=== PATIENT | female | born 1990 ===

== ENCOUNTER 2018-09-02 12:58 | Emergency (ER) | payer BC ==
[2018-09-02 13:10] VITALS: RESP 16; O2SAT 99
[2018-09-02] MEDS ORDERED: Sodium Chloride 0.9% 1,000 ML IV SCH (13:45)
--- NOTE | 2018-09-02 14:40 | ED PDOC ---
History of Present Illness History of Present Illness: 27 year old female presents to the ED with a fever and dry cough for 4 days. Also complains of associated headache, nausea , diarrhea. 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 Her Tmax was 102.7 yesterday. The temperature has varied greatly. Her temperature this morning was 98 before she took Tylenol and Motrin at 8:30am. Tolerating PO per baseline. She denies SOB, vomiting, sore throat, neck pain, chest pain, dizziness, abdominal pain, ear pain, urinary symptoms, or any other associated symptoms. PMD: [place] HPI: Influenza Time Seen by Provider: 09/02/18 13:58 Chief Complaint: Flu-like Symptoms Chief Complaint (Provider): Flu-like Symptoms History Per: Patient Exam Limitations: no limitations Onset/Duration Of Symptoms: Days (x 4) Symptoms include: headache, diarrhea Past Medical History Reviewed: Historical Data, Nursing Documentation, Vital Signs Vital Signs: Last Vital Signs Temp 98.1 F 09/02/18 13:06 Pulse 60 09/02/18 13:06 Resp 16 09/02/18 13:06 BP 106/63 09/02/18 13:06 Pulse Ox 99 09/02/18 13:06 - Medical History PMH: No Chronic Diseases - Surgical History Surgical History: No Surg Hx - Family History Family History: States: Unknown Family Hx - Home Medications Home Medications: Ambulatory Orders Medication Instructions Recorded Levofloxacin [Levaquin] 750 mg PO DAILY 4 Days #4 tablet 09/02/18 - Allergies Allergies/Adverse Reactions: Allergies Allergy/AdvReac Type Severity Reaction Status Date / Time No Known Allergies Allergy Verified 09/02/18 13:06 Review of Systems ROS Statement: Except As Marked, All Systems Reviewed And Found Negative Constitutional: Positive for: Fever Eyes: Negative for: Vision Change ENT: Negative for: Throat Pain Cardiovascular: Negative for: Chest Pain, Palpitations, Light Headedness Respiratory: Positive for: Cough. Negative for: Shortness of Breath Gastrointestinal: Positive for: Nausea, Diarrhea. Negative for: Vomiting, Abdominal Pain Genitourinary Female: Negative for: Dysuria, Frequency, Incontinence Musculoskeletal: Negative for: Neck Pain Skin: Negative for: Rash Neurological: Positive for: Headache. Negative for: Weakness, Numbness, Dizziness Physical Exam - Reviewed Nursing Documentation Reviewed: Yes Vital Signs Reviewed: Yes - Physical Exam Appears: Positive for: Non-toxic, No Acute Distress Head Exam: Positive for: ATRAUMATIC, NORMAL INSPECTION, NORMOCEPHALIC Skin: Positive for: Normal Color, Warm, Dry Eye Exam: Positive for: EOMI, Normal appearance, PERRL ENT: Positive for: Normal ENT Inspection Neck: Positive for: Normal, Painless ROM, Supple Cardiovascular/Chest: Positive for: Regular Rate, Rhythm Respiratory: Positive for: Normal Breath Sounds. Negative for: Crackles, Rales, Rhonchi, Wheezing, Respiratory Distress Pulses-Radial (L): 2+ Pulses-Radial (R): 2+ Gastrointestinal/Abdominal: Positive for: Normal Exam, Bowel Sounds (normoactive), Soft. Negative for: Tenderness Back: Positive for: Normal Inspection. Negative for: L CVA Tenderness, R CVA Tenderness Extremity: Positive for: Normal ROM, Capillary Refill (<2s). Negative for: Tenderness, Deformity, Swelling Lymphatic: Positive for: Normal Exam Neurologic/Psych: Positive for: Alert, Oriented, Gait (steady). Negative for: Motor/Sensory Deficits Medical Decision Making Medical Decision Makin:50 Initial Plan: --CMP --CBC --CXR --Tylenol 650 mg PO --Zofran ODT 4 mg IVP --NS IV --UA CBC:wnl CMP:wnl UA: small blood, otherwise wnl POC Preg: negative Patient feeling much better after fluids and Zofran. Tolerating PO without difficulty. Ate jello, juice, and a sandwich. no vomiting. CXR FINDINGS: LUNGS: Patchy somewhat nodular appearing infiltrate is suspected at the right lower lobe base on the frontal view alone. There is some reduction in the retrocardiac clear space in the lateral view which favors right lower lobe over right middle lobe infiltrate. No suspicious findings seen in lateral view at the level of the right middle lobe. Left lung appears clear throughout. PLEURA: No significant pleural effusion identified. No pneumothorax apparent. CARDIOVASCULAR: No aortic atherosclerotic calcification present. Normal cardiac size. No pulmonary vascular congestion. OSSEOUS STRUCTURES: No significant abnormalities. VISUALIZED UPPER ABDOMEN: Normal. OTHER FINDINGS: None. IMPRESSION: Likely right lower lobe pneumonia. Remaining lung nixon clear. No pulmonary vascular congestion. Discussed case with Dr. Mckay, who recommends outpatient treatment with Levaqu in for 5 days and followup with primary doctor. Plan of care and diagnostic results discussed with patient, and strict instructions given regarding prescriptions, importance of follow up, and signs t o return to Emergency Department, to include fever, chills, abdominal pain, difficulty breathing, or any other new/worsening symptoms. Patient verbalizes understanding of discussion. Patient A&Ox3, ambulating with steady gait, vitals stable for discharge home. Impression: Pneumonia Scribe Attestation: Documented by Nadia Cortes, acting as a scribe for Cassidy Stephenson PA-C Provider Scribe Attestation: All medical record entries made by the Scribe were at my direction and personally dictated by me. I have reviewed the chart and agree that the record accurately reflects my personal performance of the history, physical exam, medical decision making, and the department course for this patient. I have also personally directed, reviewed, and agree with the discharge instructions and disposition. - Laboratory Results Result Diagrams: 09/02/18 14:20 09/02/18 14:20 - ECG O2 Sat by Pulse Oximetry: 99 Disposition - Clinical Impression Clinical Impression: Pneumonia - Disposition Referrals: [facility] [Outside] Disposition: Routine/Home Disposition Time: 16:15 Condition: GOOD Additional Instructions: Increase fluids Take antibiotic once daily for 4 more days Followup with primary doctor within 2 days Return to Er for new/worsening symptoms Prescriptions: Levofloxacin [Levaquin] 750 mg PO DAILY 4 Days #4 tablet Instructions: Community-Acquired Pneumonia in Adults Forms: [employer] (Portuguese), [facility] ED School/Work Excuse
[2018-09-02 14:50] LABS: BASO % 0.5 % (0.0-2.0); EOS # 0.1 K/uL (0.0-0.7); EOS % 1.3 % (0.0-4.0); HEMOGLOBIN 12.4 g/dL (12.0-16.0); LYMPH # 0.7 K/uL (1.0-4.3); LYMPH % 17.3 % (20.0-40.0); MEAN CELL VOLUME 88.7 fl (81.0-99.0); MEAN CORPUSCULAR HEMOGLOBIN 28.5 pg (27.0-31.0); MEAN CORPUSCULAR HGB CONC 32.2 g/dL (33.0-37.0); MEAN PLATELET VOLUME 8.4 fl (7.2-11.7); MONO # 0.3 K/uL (0.0-0.8); MONO % 7.1 % (0.0-10.0); NEUT % 73.8 % (50.0-75.0); RBC 4.36 Mil/uL (3.80-5.20); RED CELL DISTRIBUTION WIDTH 12.9 % (11.5-14.5); WHITE BLOOD COUNT 4.1 K/uL (4.8-10.8)
[2018-09-02 15:01] LABS: ALB/GLOB RATIO 1.1 (1.0-2.1); ALT/SGPT 43 U/L (9-52); AST/SGOT 42 U/L (14-36); BLOOD UREA NITROGEN 11 mg/dl (7-17); GFR NON-AFRICAN AMERICAN > 60
[2018-09-02 15:50] LABS: SQUAMOUS EPITHIAL 3 /hpf (0-5); URINE BILIRUBIN SMALL (NEGATIVE); URINE BLOOD SMALL (NEGATIVE); URINE CLARITY SLIGHTY-CLOUDY (Clear); URINE COLOR AMBER (YELLOW); URINE GLUCOSE (UA) NEG (Normal); URINE LEUKOCYTE ESTERASE NEG Leu/uL (Negative); URINE PROTEIN 30 mg/dL (NEGATIVE); URINE UROBILINOGEN 0.2-1.0 mg/dL (0.2-1.0)
--- NOTE | 2018-09-02 16:09 | RAD ---
Date of service: 09/02/2018 HISTORY: cough COMPARISON: No prior. TECHNIQUE: Chest PA and lateral FINDINGS: LUNGS: Patchy somewhat nodular appearing infiltrate is suspected at the right lower lobe base on the frontal view alone. There is some reduction in the retrocardiac clear space in the lateral view which favors right lower lobe over right middle lobe infiltrate. No suspicious findings seen in lateral view at the level of the right middle lobe. Left lung appears clear throughout. PLEURA: No significant pleural effusion identified. No pneumothorax apparent. CARDIOVASCULAR: No aortic atherosclerotic calcification present. Normal cardiac size. No pulmonary vascular congestion. OSSEOUS STRUCTURES: No significant abnormalities. VISUALIZED UPPER ABDOMEN: Normal. OTHER FINDINGS: None. IMPRESSION: Likely right lower lobe pneumonia. Remaining lung nixon clear. No pulmonary vascular congestion.
[2018-09-02] MEDS ORDERED: levoFLOXacin 750 MG TAB PO STA (16:10)
[2018-09-02 16:47] VITALS: BP 115/68; PULSE 71; TEMP 98.2
== END 2018-09-02 16:47 | disposition home or self-care (01) ==
LOC: H.ER 12:58
DX: J18.9 Pneumonia, unspecified organism (principal)
CPT/HCPCS: 71046; 80053; 81003; 81025; 85025; 96374; 99283; J2405; J7030